=== PATIENT | male | born 1990 | race Caucasian/White ===

== ENCOUNTER 2018-10-12 03:59 | Emergency (ER) | payer OTHER ==
[2018-10-12] MEDS: IBUPROFEN 600 MG TAB PO (04:21)
[2018-10-12] MEDS: DIPHENHYDRAMINE 25 MG CAP PO (05:51)
== END 2018-10-12 07:51 | disposition left against medical advice (07) ==
LOC: FTE 03:59
DX: S20.211A Contusion of right front wall of thorax, initial encounter (principal); E11.9 Type 2 diabetes mellitus without complications; F17.210 Nicotine dependence, cigarettes, uncomplicated; V00.131A Fall from skateboard, initial encounter
CPT/HCPCS: 71100; 99283-25